=== PATIENT | male | born 1950 ===

== ENCOUNTER 2017-03-19 09:32 | Outpatient (RCR) | payer MEDICARE ==
[2016-12-27 08:38] VITALS: BP 162/88
[2016-12-27] MEDS: DEXAMETHASONE SOD PHOS 10MG/ML IVP PRN (09:45)
[2016-12-27] MEDS: LIDOCAINE/SOD BICARB 8.4% SYR ID PRN (09:45)
[2016-12-27] MEDS: NS(*) 0.9% 500 ML BAG 500 ML IV PRN (09:45)
[2016-12-27] MEDS: PALONOSETRON 0.25 MG/5 ML VIAL IVP PRN (09:45)
--- NOTE | 2016-12-27 10:16 | ONC Progress Note - NP.Halsey ---
Patient History Date of Service Dec 27, 2016 Reason For Visit/HPI Patient is seen in the clinic today for cycle 7 out of 12 of oxaliplatin, 5-FU and leucovorin for his colon cancer. Overall patient is feeling stable. 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 This previously would resolve prior to his next infusion however appears to be lasting longer especially as the weather is getting colder. He continues to use nystatin off and on for oral thrush. He denies any pain in the mouth or need for lidocaine at this time. He is experiencing some taste changes without resolution prior to his next treatment. He denies any neuropathy in his feet. He has had some mild constipation post treatment and is taking a stool softener with resolution. He denies any fever or chills, no nausea or vomiting. Problem List (1) Stage III carcinoma of colon Oncology History Patient was diagnosed with moderately invasive cecal colon adenocarcinoma with surgery on 07/18/2016. Pathology presents high risk features including pericolonic invasion of the tissue microscopically and high indices abutting suggesting numerous testicles that include increased risk for relapse. 0 of 17 lymph nodes were involved. Chemotherapy with FOLFOX 12 cycles given every 2 weeks was started on 10/04/2016. CEA will be monitored with each treatment. CEA drawn on 11/20/2016 was 1.3 Patient will receive cycle 7 today. 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 Alcohol History He occasionally has 2 alcoholic beverages in a week Recreational Drug History He denies use Smoking History: Yes (chewed in 20's) Smoking Status: Never Smoker Exposure to Second Hand Smoke?: No Medications and Allergies Active Scripts Nystatin (Nystatin) 100,000 Unit/Ml Oral.susp, 3 ML PO TID for 30 Days, #300 ML 1 Refill swish and swallow Prov:ROBBY VILLALPANDO SECURITY BUSINESS ANALYST-BC, ONC 12/13/16 Ondansetron (ZOFRAN ODT) 8 Mg Tab.rapdis, 8 MG PO Q8H, #30 TAB Prov:ROBBY VILLALPANDOP-BC, ONC 11/29/16 Prochlorperazine Maleate (Compazine) 10 Mg Tablet, 10 MG PO Q6H, #30 MG 1 Refill Prov:ROBBY VILLALPANDOP-BC, ONC 11/15/16 Dexamethasone 4 Mg Tab (DEXAMETHASONE 4 MG TAB) 4 Mg Tab, 4 MG PO BID for 3 Days , #30 TAB Take 4mg PO once or twice daily for nausea on days 2-4 of each cycle. 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) Physical Exam Vital Signs Temperature: 97.6 Pulse: 100 BP Systolic: 162 BP Diastolic: 88 Respiratory Rate: 16 O2 SAT: 95 O2 Delivery: Height (inches) 72.00 Weight lb: 0 Weight oz: Weight Kg ([place]): [id number] Pain: 0 ECOG Score: 1 General: Stable, Well Developed, Well Nourished, Not In Acute Distress HEENT: No Trauma, No Conjunctivitis, No Icterus, No Mucositis, No Oral Thrush Neck: Supple Lungs: Clear to Auscultation Heart: Regular Rate, Regular Rhythm, No Gallops, No Murmurs Abdomen: Soft and Nontender, No Hepatosplenomegaly, No Masses Extremities: No Cyanosis, No Clubbing Lymphadenopathy: No Cervical Psychiatric: Mood appears normal, Affect appears normal Skin: No Skin Rashes Diagnostic Studies Diagnostic Studies Laboratory Please see chart, labs were within normal limits, absolute neutrophil count was 1900. AST and ALT slightly elevated Assessment and Plan Assessment & Plan Patient is a pleasant gentleman recently diagnosed with stage III colon cancer of the cecum and pericolonic invasion with high indices of budding indicating an increased risk for relapse. Patient has followed with Dr. Maynard regarding treatment options. He had port placed by Dr. Ward and started FOLFOX cycle 1 on 10/04/2016 and will receive cycle 6 today. Treatment will be given every 14 days 12 cycles. Patient is tolerating treatment relatively well with expected side effects of cold sensation causing the neuropathy with cold products post oxaliplatin which resolves prior to next treatment. Patient has experienced oral thrush and is using nystatin swish and swallow as needed with good results. No oral thrush noted today I have hesitated to use any Diflucan due to his elevated liver enzymes. Patient will continue to avoid Tylenol at this time, as his liver enzymes have normalized or are just slightly elevated. CBC and CMP weekly for ongoing monitoring. Patient is doing well having his primary care provider DC his pump. Patient to follow with provider with cycle 8 FOLFOX in 2 weeks. I personally spent a total of 15 minutes. Of that 15 minutes was counseling/ coordination of patient's care. See my note above for details. ROBBY VILLALPANDO SECURITY BUSINESS ANALYST-BC, ONC Dec 27, 2016 10:16
[2017-01-10 09:08] VITALS: BP 146/77
--- NOTE | 2017-01-10 09:25 | ONC Progress Note - NP.Halsey ---
Patient History Date of Service Jan 10, 2017 Reason For Visit/HPI Patient is seen in the clinic today for cycle 8 out of 12 of oxaliplatin, 5-FU and leucovorin for his colon cancer. Patient reports that his appetite has decreased and foods do not taste as good as they used to. He has lost some weight but not significant. He continues to have cold symptoms in his hands and his face after the oxaliplatin. These do resolve prior to his next treatment. He denies significant pain just the tingling and cold sensation. He has not had any further oral thrush and has not used nystatin and over a week. He denies any bowel changes, no fever or chills, mild nausea during the 5-FU treatment but then this resolves. Overall he is tolerating treatment with expected side effects. Problem List (1) Stage III carcinoma of colon Oncology History Patient was diagnosed with moderately invasive cecal colon adenocarcinoma with surgery on 07/18/2016. Pathology presents high risk features including pericolonic invasion of the tissue microscopically and high indices abutting suggesting numerous testicles that include increased risk for relapse. 0 of 17 lymph nodes were involved. Chemotherapy with FOLFOX 12 cycles given every 2 weeks was started on 10/04/2016. CEA will be monitored with each treatment. CEA drawn on 11/20/2016 was 1.3 Patient will receive cycle 8 today. 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 Alcohol History He occasionally has 2 alcoholic beverages in a week Recreational Drug History He denies use Smoking History: Yes (chewed in 20's) Smoking Status: Never Smoker Exposure to Second Hand Smoke?: No Medications and Allergies Active Scripts Nystatin (Nystatin) 100,000 Unit/Ml Oral.susp, 3 ML PO TID for 30 Days, #300 ML 1 Refill swish and swallow Prov:ROBBY VILLALPANDOP-BC, ONC 12/13/16 Ondansetron (ZOFRAN ODT) 8 Mg Tab.rapdis, 8 MG PO Q8H, #30 TAB Prov:ROBBY VILLALPANDO PRECINCT POLICE SERGEANT-BC, ONC 11/29/16 Prochlorperazine Maleate (Compazine) 10 Mg Tablet, 10 MG PO Q6H, #30 MG 1 Refill Prov:ROBBY VILLALPANDO PRECINCT POLICE SERGEANT-BC, ONC 11/15/16 Dexamethasone 4 Mg Tab (DEXAMETHASONE 4 MG TAB) 4 Mg Tab, 4 MG PO BID for 3 Days , #30 TAB Take 4mg PO once or twice daily for nausea on days 2-4 of each cycle. Prov:JEN ALDRICH MD 11/01/16 Hydrocodone Bit/Acetaminophen (HYDROCODON-ACETAMINOPHEN 5-325) 1 Each Tablet, 1 EACH PO Q4-6H Y for PAIN, #20 TAB Prov:FRANCA WARD MD 09/21/16 Allergies: Coded Allergies: No Known Drug Allergies (Unverified , 09/20/16) Review of System/Physical Exam Review of Systems All Systems Reviewed/Normal: Yes, Except as Noted Constitutional: Positive for Appetite/Weight Change HEENT: Other (taste changes) Hematologic: Positive for Fatigue Neurologic: Tingling of Hands (related to cold), Tingling of Feet (feet feel heavy) Skin: Positive for Dry Skin Physical Exam Vital Signs Temperature: 97.7 Pulse: 67 BP Systolic: 146 BP Diastolic: 77 Respiratory Rate: 16 O2 SAT: 97 O2 Delivery: Height (inches) 72.00 Weight lb: 0 Weight oz: Weight Kg ([place]): [id number] Pain: 0 ECOG Score: 1 General: Stable, Well Developed, Well Nourished, Not In Acute Distress HEENT: No Trauma, No Conjunctivitis, No Icterus, No Mucositis, No Oral Thrush Neck: Supple Lungs: Clear to Auscultation Heart: Regular Rate, Regular Rhythm, No Gallops Abdomen: Soft and Nontender, No Hepatosplenomegaly, No Masses Extremities: No Cyanosis, No Clubbing, No Edema Lymphadenopathy: No Cervical Psychiatric: Mood appears normal, Affect appears normal Skin: No Skin Rashes, No Bruising, No Purpura Diagnostic Studies Diagnostic Studies Laboratory CBC on 1113 and shows a white cell count of 4000, hemoglobin of 12.2 hematocrit of 36.1, and platelet count of 110,000. Absolute neutrophil count is 2040. AST is 37, ALT is 41, total bilirubin is 0.9 CEA is 1.8 previously 1.9 and 1.3 Assessment and Plan Assessment & Plan Patient is a pleasant gentleman diagnosed with stage III colon cancer of the cecum and pericolonic invasion with high indices of budding indicating an increased risk for relapse. Patient has followed with Dr. Maynard regarding treatment options. He had port placed by Dr. Ward and started FOLFOX cycle 1 on 10/04/2016 and will receive cycle 8 today. Treatment will be given every 14 days 12 cycles. Patient is tolerating treatment relatively well with expected side effects of cold sensation causing the neuropathy with cold products post oxaliplatin which resolves prior to next treatment. Patient has had taste changes which is caused some mild weight loss. Patient has experienced oral thrush previously but has no evidence of thrush today. He has used nystatin. I have hesitated to use any Diflucan due to his elevated liver enzymes. Patient will continue to avoid Tylenol at this time, as his liver enzymes have normalized or are just slightly elevated. AST and ALT are always elevated one week posttreatment. CBC and CMP weekly for ongoing monitoring. Patient is doing well having his primary care provider DC his pump. Patient to follow with provider with cycle 9 FOLFOX in 2 weeks. I personally spent a total of 15 minutes. Of that 15 minutes was counseling/ coordination of patient's care. See my note above for details. Copies to: JEN ALDRICH MD, NANCY J FNP-BC, ONC Jan 10, 2017 09:25
[2017-01-10] MEDS: DEXAMETHASONE SOD PHOS 10MG/ML IVP PRN (09:32)
[2017-01-10] MEDS: PALONOSETRON 0.25 MG/5 ML VIAL IVP PRN (09:32)
[2017-01-10] MEDS: NS(*) 0.9% 500 ML BAG 500 ML IV PRN (09:34)
[2017-01-10] MEDS: DEXTROSE 5%(*) 100 ML BAG 100 ML IVPB PRN (09:35)
[2017-01-10] MEDS: LIDOCAINE/SOD BICARB 8.4% SYR ID PRN (09:35)
[2017-01-24 08:54] VITALS: BP 163/98
[2017-01-24] MEDS: DEXAMETHASONE SOD PHOS 10MG/ML IVP PRN (09:23)
[2017-01-24] MEDS: PALONOSETRON 0.25 MG/5 ML VIAL IVP PRN (09:23)
[2017-01-24] MEDS: LIDOCAINE/SOD BICARB 8.4% SYR ID PRN (09:23)
[2017-01-24] MEDS: NS(*) 0.9% 500 ML BAG 500 ML IV PRN (09:24)
--- NOTE | 2017-02-02 09:51 | ONCOLOGY FOLLOW UP NOTE ---
EVENT DATE: January 24, 2017 REASON FOR FOLLOWUP High risk stage II colon cancer. INTERIM HISTORY Mr. Starr returns to clinic for a follow-up visit today. He is accompanied by his . He is preparing to receive his ninth of 12 planned FOLFOX chemotherapy cycles in the adjuvant setting. He has been followed by Dr. Baldwin here, as well as QUENTIN Wong. He reports that things have generally been going fairly well, and that his two or three most recent chemotherapy infusions had actually been a bit easier than prior. He reports ongoing cold sensitivity and peripheral neuropathy related to cold. He has had no chronic or persistent peripheral neuropathy that is independent of cold, however. His appetite has been fair, but his taste buds have not been working particularly well. He reports no significant nausea, but he has had some sores in his mouth. He reports no significant changes in his bowel habits. He denies melena and hematochezia. He reports no shortness of breath, chest pain, or cough. He has not yet received a flu shot this year. He does not have a primary care doctor. He and his live in [place], [place]. So far, weather and road conditions have not been limiting for him, in terms of administration of adjuvant chemotherapy. REVIEW OF SYSTEMS Otherwise negative, and all systems are reviewed. CURRENT MEDICATIONS 1. Nystatin p.r.n. 2. Zofran p.r.n. 3. Compazine p.r.n. 4. Dexamethasone per chemotherapy protocol. 5. Hydrocodone/acetaminophen p.r.n. 6. Acetaminophen p.r.n. ALLERGIES No known drug allergies. SOCIAL HISTORY Patient is and has four children. He is a retired trucker hand. He had occasionally consumed alcoholic beverages, but there is no history of illicit drug use. He is a never smoker. VITAL SIGNS Temperature is 97.1, blood pressure 136/89, heart rate is 61, respirations 15, oxygen saturation is 98% on room air. PHYSICAL EXAMINATION GENERAL: Patient is alert and oriented times three, in no apparent distress, sitting in the infusion chair. He is in good spirits, and quite interactive. HEENT: Exam reveals anicteric sclerae. NEUROLOGIC: Exam is grossly nonfocal. SKIN: Exam reveals no concerning rash or lesion. EXTREMITIES: Exam reveals no edema, clubbing or cyanosis. The rest of the physical exam is deferred for discussion today. LABORATORY STUDIES Reviewed per the [facility] record. ASSESSMENT AND PLAN 1. High risk stage II colon cancer. Mr. Starr has completed eight of 12 cycles of adjuvant FOLFOX chemotherapy. He is here to receive his ninth cycle. He has had his pump removed on day three, closer to home in [place]. He is having ongoing and expected toxicity from adjuvant chemotherapy. Cold sensitivity, fatigue, and dyschezia have been the most prominent. He does seem to be tolerating adjuvant chemotherapy remarkably well, and it is very likely that he will be able to finish. We discussed the importance of having him find a primary care provider, as well as some additional concerns about his CEA levels. Initially, as I had not had a chance to review his outside labs, it seemed that his CEA was in the 3-4 range. However, after further review, his CEA has been less than 2. Also, his LFTs have fluctuated somewhat throughout his treatment course, and he has no symptoms to suggest metastatic disease in the liver. As long as there is not a definitive trend of worsening in his LFTs , I think it is certainly fine for him to proceed with adjuvant chemotherapy per protocol. He will have followup at the time of his next cycle with either Dr. Baldwin or QUENTIN Wong. The patient and his had additional questions today, and I believe I answered all of their questions to their satisfaction. I spent a total of 30 minutes of time face to face with the patient today, and 25 minutes of this was spent in direct counseling and coordination of care. DAWNA
[2017-02-07 08:37] VITALS: BP 139/99
[2017-02-07] MEDS: LIDOCAINE/SOD BICARB 8.4% SYR ID PRN ×2 (08:40→09:00)
[2017-02-07] MEDS: DEXTROSE 5%(*) 100 ML BAG 100 ML IVPB PRN (09:00)
[2017-02-07] MEDS: NS(*) 0.9% 500 ML BAG 500 ML IV PRN (09:00)
[2017-02-07] MEDS: PALONOSETRON 0.25 MG/5 ML VIAL IVP PRN (09:03)
[2017-02-07] MEDS: DEXAMETHASONE SOD PHOS 10MG/ML IVP PRN (09:03)
--- NOTE | 2017-02-07 11:36 | ONC Progress Note - NP.Halsey ---
Patient History Date of Service Feb 07, 2017 Reason For Visit/HPI Patient is seen in the clinic today for cycle 10 out of 12 of oxaliplatin, 5-FU and leucovorin for his colon cancer. Patient continues to report that he has neuropathy to cold products and taste changes. He is able to maintain his weight. Occasionally he has episodes of diarrhea but does not take any medication for fear of constipation and shares that this resolves within a day. Patient has no new concerns today. He has requested a prescription for lab draw on February 20 and February 27 to hand carry with him to the [facility]. In addition I did call the [facility] and leave a message. Problem List (1) Stage III carcinoma of colon Oncology History Patient was diagnosed with moderately invasive cecal colon adenocarcinoma with surgery on 07/18/2016. Pathology presents high risk features including pericolonic invasion of the tissue microscopically and high indices abutting suggesting numerous testicles that include increased risk for relapse. 0 of 17 lymph nodes were involved. Chemotherapy with FOLFOX 12 cycles given every 2 weeks was started on 10/04/2016. CEA will be monitored with each treatment. CEA drawn on 11/20/2016 was 1.3 Patient will receive cycle 10 today. 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 Alcohol History He occasionally has 2 alcoholic beverages in a week Recreational Drug History He denies use Smoking History: Yes (chewed in 20's) Smoking Status: Never Smoker Exposure to Second Hand Smoke?: No Medications and Allergies Active Scripts Nystatin (Nystatin) 100,000 Unit/Ml Oral.susp, 3 ML PO TID for 30 Days, #300 ML 1 Refill swish and swallow Prov:ROBBY VILLALPANDO PRINTING SALES REPRESENTATIVE-BC, ONC 12/13/16 Ondansetron (ZOFRAN ODT) 8 Mg Tab.rapdis, 8 MG PO Q8H, #30 TAB Prov:ROBBY VILLALPANDO PRINTING SALES REPRESENTATIVE-BC, ONC 11/29/16 Prochlorperazine Maleate (Compazine) 10 Mg Tablet, 10 MG PO Q6H, #30 MG 1 Refill Prov:ROBBY VILLALPANDO PRINTING SALES REPRESENTATIVE-BC, ONC 11/15/16 Dexamethasone 4 Mg Tab (DEXAMETHASONE 4 MG TAB) 4 Mg Tab, 4 MG PO BID for 3 Days , #30 TAB Take 4mg PO once or twice daily for nausea on days 2-4 of each cycle. Prov:JEN ALDRICH MD 11/01/16 Hydrocodone Bit/Acetaminophen (HYDROCODON-ACETAMINOPHEN 5-325) 1 Each Tablet, 1 EACH PO Q4-6H Y for PAIN, #20 TAB Prov:FRANCA WARD MD 09/21/16 Allergies: Coded Allergies: No Known Drug Allergies (Unverified , 09/20/16) Review of System/Physical Exam Review of Systems All Systems Reviewed/Normal: Yes, Except as Noted Gastrointestinal: Diarrhea Hematologic: Positive for Fatigue Neurologic: Other (cold neuropathy in his hands) Skin: Positive for Dry Skin Physical Exam Vital Signs Temperature: 97.8 Pulse: 81 BP Systolic: 139 BP Diastolic: 99 Respiratory Rate: 16 O2 SAT: 95 O2 Delivery: Height (inches) 72.00 Weight lb: 0 Weight oz: Weight Kg ([place]): [id number] Pain: 0 ECOG Score: 1 General: Stable, Well Developed, Well Nourished, Not In Acute Distress HEENT: No Trauma Lungs: Clear to Auscultation Heart: Regular Rate, Regular Rhythm, No Gallops Abdomen: Soft and Nontender, No Hepatosplenomegaly, No Masses, Other (Zach sounds are normoactive) Extremities: No Cyanosis, No Clubbing, No Edema Psychiatric: Mood appears normal, Affect appears normal Skin: No Skin Rashes, No Bruising, No Purpura Diagnostic Studies Diagnostic Studies Laboratory Labs were reviewed today, please see handout in his paper chart. Assessment and Plan Assessment & Plan Patient is a pleasant gentleman diagnosed with stage III colon cancer of the cecum and pericolonic invasion with high indices of budding indicating an increased risk for relapse. Patient has followed with Dr. Cantu regarding treatment options. He had port placed by Dr. Ward and started FOLFOX cycle 1 on 10/04/2016 and will receive cycle 8 today. Treatment will be given every 14 days 12 cycles. Patient is tolerating treatment relatively well with expected side effects of cold sensation causing the neuropathy with cold products post oxaliplatin which resolves prior to next treatment. Patient has had taste changes which is caused some mild weight loss however patient feels that it has stabilized recently. Patient has experienced oral thrush previously but has no evidence of thrush today. He has not used nystatin. Patient will continue to avoid Tylenol at this time, as his liver enzymes have normalized or are just slightly elevated. AST and ALT are always elevated one week posttreatment. CBC and CMP weekly for ongoing monitoring. Patient is doing well having his primary care provider DC his pump. Patient to follow with provider with cycle 11 FOLFOX in 2 weeks. He should follow with Dr. Cantu prior to completion of treatment. He is questioning when he can have his port removed. I personally spent a total of 15 minutes. Of that 15 minutes was counseling/ coordination of patient's care. See my note above for details. ROBBY VILLALPANDO PRINTING SALES REPRESENTATIVE-BC, ONC Feb 07, 2017 11:36
[2017-02-07 12:38] VITALS: BP 144/94
[2017-02-21] MEDS: DEXTROSE 5%(*) 100 ML BAG 100 ML IVPB PRN (08:30)
[2017-02-21] MEDS: NS(*) 0.9% 500 ML BAG 500 ML IV PRN (08:30)
[2017-02-21] MEDS: LIDOCAINE/SOD BICARB 8.4% SYR ID PRN (08:30)
[2017-02-21] MEDS: PALONOSETRON 0.25 MG/5 ML VIAL IVP PRN (09:16)
[2017-02-21] MEDS: DEXAMETHASONE SOD PHOS 10MG/ML IVP PRN (09:17)
[2017-02-21 09:19] VITALS: BP 124/80
--- NOTE | 2017-02-21 10:31 | ONC Progress Note - NP.Halsey ---
Patient History Date of Service Feb 21, 2017 Reason For Visit/HPI Patient is seen in the clinic today for cycle 11 out of 12 of oxaliplatin, 5-FU and leucovorin for his colon cancer. He will have labs drawn on Feb.27 in [place] post this cycle today. Overall he is feeling weak and fatigued but continues to do daily chores, it just takes him longer. He feels that his taste has improved. 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 He is anxious to be completed. Problem List (1) Stage III carcinoma of colon Oncology History Patient was diagnosed with moderately invasive cecal colon adenocarcinoma with surgery on 07/18/2016. Pathology presents high risk features including pericolonic invasion of the tissue microscopically and high indices abutting suggesting numerous testicles that include increased risk for relapse. 0 of 17 lymph nodes were involved. Chemotherapy with FOLFOX 12 cycles given every 2 weeks was started on 10/04/2016. CEA will be monitored with each treatment. CEA drawn on 11/20/2016 was 1.3 Patient will receive cycle 10 today. 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 Alcohol History He occasionally has 2 alcoholic beverages in a week Recreational Drug History He denies use Smoking History: Yes (chewed in 20's) Smoking Status: Never Smoker Exposure to Second Hand Smoke?: No Medications and Allergies Active Scripts Nystatin (Nystatin) 100,000 Unit/Ml Oral.susp, 3 ML PO TID for 30 Days, #300 ML 1 Refill swish and swallow Prov:ROBBY VILLALPANDOP-BC, ONC 12/13/16 Ondansetron (ZOFRAN ODT) 8 Mg Tab.rapdis, 8 MG PO Q8H, #30 TAB Prov:ROBBY VILLALPANDOP-BC, ONC 11/29/16 Prochlorperazine Maleate (Compazine) 10 Mg Tablet, 10 MG PO Q6H, #30 MG 1 Refill Prov:ROBBY VILLALPANDOP-BC, ONC 11/15/16 Dexamethasone 4 Mg Tab (DEXAMETHASONE 4 MG TAB) 4 Mg Tab, 4 MG PO BID for 3 Days , #30 TAB Take 4mg PO once or twice daily for nausea on days 2-4 of each cycle. Prov:JEN ALDRICH MD 11/01/16 Hydrocodone Bit/Acetaminophen (HYDROCODON-ACETAMINOPHEN 5-325) 1 Each Tablet, 1 EACH PO Q4-6H Y for PAIN, #20 TAB Prov:FRANCA WARD MD 09/21/16 Allergies: Coded Allergies: No Known Drug Allergies (Unverified , 09/20/16) Review of System/Physical Exam Review of Systems All Systems Reviewed/Normal: Yes, Except as Noted Hematologic: Positive for Fatigue Neurologic: Other (neuropathy when exposed to cold products. ) Physical Exam Vital Signs Temperature: 97.8 Pulse: 70 BP Systolic: 124 BP Diastolic: 80 Respiratory Rate: 16 O2 SAT: 95 O2 Delivery: Height (inches) 72.00 Weight lb: 0 Weight oz: Weight Kg ([place]): [id number] Pain: 0 ECOG Score: 0 General: Stable, Well Developed, Well Nourished, Not In Acute Distress HEENT: No Trauma, No Conjunctivitis, No Icterus Neck: Supple Lungs: Clear to Auscultation Heart: Regular Rate, Regular Rhythm, No Gallops Abdomen: Soft and Nontender, No Hepatosplenomegaly, No Masses, Other (bowel sounds active) Extremities: No Cyanosis Psychiatric: Mood appears normal, Affect appears normal Skin: No Skin Rashes, No Bruising, No Purpura Diagnostic Studies Diagnostic Studies Laboratory CBC drawn on 02/20/2017 shows a white cell count of 2900, hemoglobin 11.2, hematocrit of 32.4 with platelet count of 103,000. Absolute neutrophil count is 1400. Chemistry is remarkable for a protein is 6.3 and a calcium of 8.4. Tumor markers were not resulted. Assessment and Plan Assessment & Plan Patient is a pleasant gentleman diagnosed with stage III colon cancer of the cecum and pericolonic invasion with high indices of budding indicating an increased risk for relapse. Patient has followed with Dr. Cantu regarding treatment options. He had port placed by Dr. Ward and started FOLFOX cycle 1 on 10/04/2016 and will receive cycle 11 today. Treatment has been given every 14 days 12 cycles. Patient is tolerating treatment relatively well with expected side effects of cold sensation causing the neuropathy with cold products post oxaliplatin which resolves prior to next treatment. Patient has had taste changes which is caused some mild weight loss however patient feels that it has stabilized and improved recently. Labs reviewed today are essentially unremarkable. Patient's platelet level is 103,000, ANC is 1400. Patient is doing well having his primary care provider DC his pump. Patient to follow with provider with cycle 11 FOLFOX in 2 weeks. He should follow with Dr. Cantu prior to completion of treatment. He is questioning when he can have his port removed. I personally spent a total of 15 minutes. Of that 15 minutes was counseling/ coordination of patient's care. See my note above for details. ROBBY VILLALPANDO ELECTRIC SIGN ASSEMBLER-BC, ONC Feb 21, 2017 10:31
[2017-02-21 14:51] VITALS: BP 124/80
--- NOTE | 2017-02-28 14:29 | Oncology Note ---
Patient called the clinic and would like to have labs drawn at the [facility] on March 05 and will complete chemotherapy on March 06 in [place] due to services scheduled for March 07 of a dear friend that he would like to attend. Patient then will follow with Dr. Maynard on March 19 to review follow-up schedule. Labs were faxed to the [facility] at [phone]. ROBBY VILLALPANDO SPOT WELDER-BC, ONC Feb 28, 2017 14:29
--- NOTE | 2017-03-05 16:35 | SS Care Plan-COLON ---
Introduction Your cancer care does not end with active treatment. Now that you have finished your cancer treatment, you will continue to be monitored and any lingering side effects will be managed. This Survivorship Care Plan was designed to help you prepare for life after cancer treatment. It will include important contact information, diagnosis information, treatment summary, doses of chemotherapy and/or radiation therapy, and recommendations for follow-up care. Follow- up care and keeping a medical support system in place are essential for maintaining both your physical and emotional health. Please contact us with any future questions or concerns. Care Plan for Colon Cancer Prepared by: KITTY Vega, OCGarcia Care Team Care Team Mixer Whipped Topping/Oncologist Nilo Cantu MD Nurse/Nurse Practitioner KITTY Wong, AMEE [facility]/[employer] [place] Background Info Surgery completed on 07-18-[address] Jayme Lemus. Colonoscopy completed demonstrated a mass in the cecum/ascending colon with biopsies confirming adenocarcinoma. CEA level was normal. He had mild anemia. CT scan did not show any definite evidence of metastatic disease but demonstrated a ileocecal mass. Cancer Detection: Screening, Symptoms (Presented to the emergency room in [place] with right lower quadrant pain. ) Site in Colon: Right (Right sided hemicolectomy for moderately invasive cecal colon adenocarcinoma with surgery on july 18, 2016) Predisposing Conditions: None Family History: None (Family history of mother and grandfather with lung cancer) Genetic Testing: Not Applicable Other Lesions: None Primary Colon Operation: Right Hemicolectomy Lymph Nodes Lymph Nodes: There were some high risk features including pericolonic invasion of the tissues microscopically. There were high indices of budding suggesting numerous tentacles that would increase risk for relapse. Zero of 17 lymph nodes were involved. Notable Pathological Findings Invasive moderately differentiated adenocarcinoma arising from a conventional adenoma with high grade dysplasia and villiform architecture completed on . pT3 pN0 Notable Surgical Findings Notable Surgical Findings: Recovery from surgery with abdominal discomfort and very mild distention with quick resolution. Ostomy: No Other Health Concerns ~ Other Health Concerns: PAST MEDICAL HISTORY 1. Pericarditis in 1975. 2. Stage III colon cancer status post right-sided hemicolectomy. Treatment Plan & Summary Treatment Plan & Summary Patient's Height 182.9 cm Pre-treatment Post-Treatment Patient's Weight 90.2kg 85.2 kg Patient's BSA 2.13m2 ECOG Performance Status 90% 80%-90% Nutritional Status unremarkable unremarkable Comments Good toleration with expected side effects Regimen FolFox x 12 cycles given every 14 days Premedications included dexamethasone 10mg IV and Aloxi 0.25mg IV. Pre-Oxaliplatin included calcium gluconate 1g with magnesium sulfate 1g IV Post-Oxaliplatin included calcium gluconate 1g with magnesium sulfate 1g IV Therapeutic Agents Therapeutic Agents # Cycles % Dose Reduction DATES Oxaliplatin 85mg/m2 12 treatments in 6 cycles none 10-04-16 to 03-06-17 Leucovorin 400g /m2 12 treatments in 6 cycles none 10-04-16 to 03-06-17 5-Fluorouracil 400mg/m2 IV push 12 treatments in 6 cycles none 10-04-16 to 03-06 5-Fluorouracil 2400mg/m2 IV continous infusion over 46 hours 12 treatments in 6 cycles none 10-04-16 to 03-06-17 Treatment Tolerance Good toleration. Elevated AST/ALT experienced several treatments. Neuropathy to cold developed as expected. Increased fatigue. Chemotherapy Treatment Dates 10-04-16 to 03-06-17 given every two weeks Possible Side Effects of Regimen Neuropathy, low blood count, fatigue, diarrhea , dehydration, nausea and vomiting Serious Toxicities During Treatment Anemia, Mucositis, Neuropathy, neutropenia, fatigue, Hospitalization for Toxicities none Reason For Stopping Chemotherapy Completed therapy Growth Factor Given none Disease Status at end of Treatment No evidence of disease CEA 1.9 or lower throughout treatment Neuropathy at end of treatment Grade 3 to Grade 2 Follow-Up Care FOLLOW-UP CARE UPON SCREENING THE PATIENT HAS BEEN DETERMINED TO HAVE THE FOLLOWING ISSUE(S): 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 Chief Concern Needs/Concerns Chief Patient Concerns: Neuropathy Bone Health/Osteoporosis risk Survivors who received chemotherapy, steroid medications, or hormonal therapy may develop thin or weak bones called osteoporosis. Anyone can lower their risk of osteoporosis by avoiding tobacco products, eating foods rich in calcium and vitamin D and doing regular exercise. Recommendations are: Bone densitometry every 1 to 2 years after initiation of aromatase inhibitor (if applicable) and/or at age 65 or older or for patients who experienced chemotherapy-induced early menopause Calcium (1200-1500mg) through diet or supplementation and Vitamin D- 2000 IU daily or as directed Weight-bearing exercise- daily 20-60 minutes Avoidance of smoking if appropriate Bisphosphonate, if indicated per bone densitometry Psychological, Emotional, Relational, and Spiritual Aspects of Survivorship Having cancer often changes the way you relate to family, partner or friends and the way they relate to you. When active treatment is over, some survivors need different types of support than they had before. Some friends may become closer, while others may distance themselves. Families can become overprotective or may have exhausted their ability to be supportive. Relationship problems that may have been ignored before a cancer diagnosis can be brought to the surface. Everyone is changed by the cancer experience in ways they may not be aware of. It is often helpful to: Talk with other cancer survivors by attending a support group Attend individual counseling or family counseling Screening for other cancers If 50 years or older: Colonoscopy every 10 years if first is normal If male and 50 years or older; PSA screening If male and family history of prostate cancer, PSA to begin at age 40 Fatigue Fatigue is a persistent feeling of physical, emotional, or mental tiredness or exhaustion. It is the most common side effect of cancer treatment, and some cancer survivors experience fatigue for months after finishing treatment. Fatigue can seriously affect all aspects of a persons life, from relationships with friends and family to the ability to perform at work. It is important to discuss fatigue with your provider because fatigue can be managed. Regular physical activity (e.g., walking 20 minutes daily) Evaluation for hypothyroidism, anemia, depression Physical therapy evaluation Wellness Being diagnosed with a serious illness is very stressful. Learning how to manage stress is extremely important for recovery and gook health in the future. Experiencing high levels of stress for a long time has been linked to health problems and lower quality of life. A big step in reducing stress can be made through small daily changes. Some ways to manage stress is through: Maintenance of body weight as weight gain is associated with recurrence Regular physical activity (e.g., walking 20-60 minutes daily) appears to be associated with a lower risk for recurrence and improved survival following many treatments and lowers stress levels Avoidance of smoking and exposure to second hand smoke Limitation of alcohol intake to <1drink, 2-3x per week Eating a diet high in fruits, vegetables, and whole grains and low in red and processed meat appears to protect against cancer progression, risk of recurrence, and overall mortality for a variety of cancers Obtaining the nutrients needed from foods instead of supplements or vitamins is best. Preliminary evidence has shown that supplements may do more harm than good Screening as recommended Relaxation, support groups, acupuncture, yoga, massage and counseling have been found to be effective in learning to decrease stress Annual Influenza vaccination Pneumococcal vaccination with revaccination as appropriate- usually at age 65 Shingles vaccination as appropriate- usually at age 60 Concerns about risk of recurrence A recurrence is when the cancer comes back after treatment. Cancer recurs because small areas of cancer cells may remain undetected in the body. Over time, these cells may increase in number until they show up on test results or cause signs or symptoms. Depending on the type of cancer, this can happen weeks , months, or even many years after the original cancer was treated. A recurrence may be local, which means the cancer has come back in the same part of the body where the original cancer was located; regional, which means it has returned in an area near the original location; or distant, which means it has returned in another part of the body. It is important to know that if a cancer recurs far from the location of the original cancer, it is still named for the part of the body where the original cancer began. For example, if a woman treated for breast cancer develops cancer in her liver, doctors will say she has metastatic breast cancer (breast cancer that has spread to another part of the body), not liver cancer. To help find signs of a potential recurrence, your provider will ask specific questions about your health and usually do a careful examination during your follow-up visits. You may also have blood tests or imagining tests. Referral for counseling or support group often helps with emotional concerns Memory problems and/or confusion Chemotherapy has been associated with causing cognitive deficits such as problems with thinking, learning and memory. If you have cognitive deficits, you may be forgetful or have difficulty concentrating. Research has demonstrated that chemotherapy may cause such deficits. Some survivors may experience long-term cognitive deficits and some may have improvement after completing treatment. Other factors that may contribute to memory and concentration problems include aging, depression, menopause, low blood counts, medications and mental and emotional stress with coping with cancer and after cancer. There are no proven treatments other than: Obtaining good sleep habits Exercise the mind with memory games Use notes as reminders- carry a notebook and write down important information Exercise daily Manage stress Peripheral neuropathy Peripheral neuropathy is a type of nerve damage that develops when the nerves that carry information back and forth between the brain and spinal cord are damaged. This damage can be caused by some types of chemotherapy, radiation therapy or by the cancer itself. Depending on which nerves are affected, a person can develop numbness, tingling, pain, muscle weakness, constipation, or dizziness. Many people recover fully within a few months or a few years. Sometimes the condition may be more difficult to cure and may require long-term management. Treatment options include: Use of Vitamin B6 100mg twice daily may help Lutein may be used Gabapentin, Lyrica may be prescribed Over the counter cream medications such as capsaicin cream or menthol creams may help Massage- by increasing blood flow, massage may provide pain relief Physical therapy- through range of motion and stretching exercises, physical therapy may strengthen muscles that are weak and improve other symptoms of peripheral neuropathy Transcutaneous nerve stimulation (TNS)- electrical impulses attached to your skin may provide relief and promote nerve regeneration Surveillance SURVEILLANCE Year 1 Year 2 Year 3 Yrs 4 & 5 Medical Hx/Physical Exam Every 3 months Every 3-6 months Every 6 months Every 6 months CEA Test Every 3 Months Every 3-6 months Every 6 months Every [address] Scan (chest & abdomen) Every 6-12 months Every 6-12 months Every 6-12 months Every 6-12 months Colonoscopy In one year As indicated As indicated Should repeat Counseling visits Every 3 months Every 3-6 months Every 6 months Every 6 months Preventive Care Recommendations: All preventive measures per PCP, Bone Health, Colon cancer screening, Cholesterol monitoring/management, Diet, Exercise, Mental Health, Weight management Comments on Follow-up Care: May consider a low dose aspirin daily for disease prevention. Monitor for neuropathy. End Note END NOTE 1: Important caution. This is a summary document whose purpose is to review the highlights of the cancer chemotherapy treatment plan for this patient. This does not replace information available in the medical record, a complete medical history provided by the patient, examination and diagnostic information, or educational materials that describe strategies for coping with cancer and adjuvant chemotherapy in detail. Both medical science and an individual's health care needs change, and therefore this document is current only as of the date of preparation. This summary document does not prescribe or recommend any particular medical treatment or care for cancer or any other disease and does not substitute for the independent medical judgment of the treating professional. ROBBY VILLALPANDO FANCY WIRE DRAWER-BC, ONC Mar 05, 2017 16:35
[2017-03-06] MEDS: LIDOCAINE/SOD BICARB 8.4% SYR ID PRN (08:28)
[2017-03-06 08:33] VITALS: BP 123/73
[2017-03-06] MEDS: NS(*) 0.9% 500 ML BAG 500 ML IV PRN (08:33)
[2017-03-06] MEDS: PALONOSETRON 0.25 MG/5 ML VIAL IVP PRN (08:50)
[2017-03-06] MEDS: DEXAMETHASONE SOD PHOS 10MG/ML IVP PRN (08:50)
[2017-03-06] MEDS: DEXTROSE 5%(*) 100 ML BAG 100 ML IVPB PRN (09:30)
--- NOTE | 2017-03-06 10:17 | ONC Progress Note - NP.Halsey ---
Patient History Date of Service Mar 06, 2017 Reason For Visit/HPI Patient is seen in the clinic today for cycle 12 out of 12 of oxaliplatin, 5-FU and leucovorin for his colon cancer. Overall patient is feeling well. He has continued fatigue and neuropathy with numbness in the fingers and feet and cold sensation to the hands feet and mouth. He had increased difficulty with fine motor activities and has seen PT and has exercises that he is doing. Over the last few cycles he has developed a dizziness and is more careful with movement from one position to another. He has exercises for his dizziness as well. Survivorship information was reviewed with him today and a handout given which included doses of chemotherapy, dates of treatment, side effects experienced and management of those side effects in the future. His follow up recommended schedule is reviewed with screening recommendations. He is happy to complete treatment today and would like to have his PORT removed. Problem List (1) Stage III carcinoma of colon Oncology History Patient was diagnosed with moderately invasive cecal colon adenocarcinoma with surgery on 07/18/2016. Pathology presents high risk features including pericolonic invasion of the tissue microscopically and high indices abutting suggesting numerous testicles that include increased risk for relapse. 0 of 17 lymph nodes were involved. Chemotherapy with FOLFOX 12 cycles given every 2 weeks was started on 10/04/2016. CEA will be monitored with each treatment. CEA drawn on 11/20/2016 was 1.3 Patient will receive cycle 10 today. 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 Alcohol History He occasionally has 2 alcoholic beverages in a week Recreational Drug History He denies use Smoking History: Yes (chewed in 20's) Smoking Status: Never Smoker Exposure to Second Hand Smoke?: No Medications and Allergies Active Scripts Nystatin (Nystatin) 100,000 Unit/Ml Oral.susp, 3 ML PO TID for 30 Days, #300 ML 1 Refill swish and swallow Prov:ROBBY VILLALPANDO SCRAP CARRIER-BC, ONC 12/13/16 Ondansetron (ZOFRAN ODT) 8 Mg Tab.rapdis, 8 MG PO Q8H, #30 TAB Prov:ROBBY VILLALPANDO SCRAP CARRIER-BC, ONC 11/29/16 Prochlorperazine Maleate (Compazine) 10 Mg Tablet, 10 MG PO Q6H, #30 MG 1 Refill Prov:ROBBY VILLALPANDO Johnson SCRAP CARRIER-BC, ONC 11/15/16 Dexamethasone 4 Mg Tab (DEXAMETHASONE 4 MG TAB) 4 Mg Tab, 4 MG PO BID for 3 Days , #30 TAB Take 4mg PO once or twice daily for nausea on days 2-4 of each cycle. Prov:JEN ALDRICH MD 11/01/16 Hydrocodone Bit/Acetaminophen (HYDROCODON-ACETAMINOPHEN 5-325) 1 Each Tablet, 1 EACH PO Q4-6H Y for PAIN, #20 TAB Prov:FRANCA WARD MD 09/21/16 Allergies: Coded Allergies: No Known Drug Allergies (Unverified , 09/20/16) Review of System/Physical Exam Review of Systems All Systems Reviewed/Normal: Yes, Except as Noted Hematologic: Positive for Fatigue, Positive for Weakness Neurologic: Numbness of Hands, Numbness of Feet Physical Exam Vital Signs Temperature: 97.5 Pulse: 82 BP Systolic: 123 BP Diastolic: 73 Respiratory Rate: 16 O2 SAT: 94 O2 Delivery: Height (inches) 72.00 Weight lb: 0 Weight oz: Weight Kg ([place]): [id number] Pain: 0 ECOG Score: 1 General: Stable, Well Developed, Well Nourished, Not In Acute Distress HEENT: No Trauma, No Conjunctivitis, No Icterus, No Mucositis Neck: Supple Lungs: Clear to Auscultation Heart: Regular Rate, Regular Rhythm, No Gallops, No Murmurs Abdomen: Soft and Nontender, No Hepatosplenomegaly, No Masses Extremities: No Cyanosis, No Clubbing, No Edema Lymphadenopathy: No Cervical Psychiatric: Mood appears normal, Affect appears normal Skin: No Skin Rashes, No Bruising, No Purpura Diagnostic Studies Diagnostic Studies Laboratory labs reviewed today from outside source. See SPU chart Assessment and Plan Assessment & Plan Patient is a pleasant gentleman diagnosed with stage III colon cancer of the cecum and pericolonic invasion with high indices of budding indicating an increased risk for relapse. Patient has followed with Dr. Aldrich regarding treatment options. He had port placed by Dr. Ward and started FOLFOX cycle 1 on 10/04/2016 and will receive cycle 12, final treatment today. Treatment has been given every 14 days 12 cycles. Patient is tolerating treatment relatively well with expected side effects of cold sensation causing the neuropathy with cold products post oxaliplatin which resolves prior to next treatment. He had developed numbness in the fingers and toes. He has some difficulty with fine motor skills. He has dizziness over the last month which requires him to be more careful with movements. He has no nausea. Patient has had taste changes which is caused some mild weight loss however patient feels that it has stabilized and improved recently. Labs reviewed today are essentially unremarkable. Patient is doing well having his primary care provider DC his pump. He will follow with primary regarding survivorship recommendations reviewed today and given to him in written form. Patient to follow with Dr. Aldrich on March 19. He is questioning when he can have his port removed. Patient will need a CT scan scheduled with the NCCN recommendation of every 6 months for the first year. He will be followed with a CEA every 3 months and will need a colonoscopy. The current recommendation is withing one year, but does not explain if it is from diagnosis or completion of treatment. I personally spent a total of 30minutes. Of that 25 minutes was counseling/ coordination of patient's care. See my note above for details. Copies to: JEN ALDRICH MD, NANCY J SCRAP CARRIER-BC, ONC Mar 06, 2017 10:17
[2017-03-06 13:20] VITALS: BP 135/85
[~2017-03-19] VITALS: Ht 182.9 cm; Wt 80.9 kg
[~2017-03-19 09:32] MED LIST: ALTEPLASE RECOMB 2 MG VIAL IVP PRN; DEX4 PO; FLUOROURACIL 50 MG/ML SDV IV ONE; FLUOROURACIL 50 MG/ML SDV IVP ONE; FLUOROURACIL IV ONE; HEPARIN FLSH (PORT) 500 UN/5ML IVP PRN; LEUCOVORIN CAL IV ONE; LEUCOVORIN CALCIUM IV ONE; LEUCOVORIN IV ONE; LOR5/325 PO; LORA-1455 PO; NS 0.9% IV ONE; NS(*) 0.9% 100 ML BAG 100 ML IVPB PRN; NYST100016 PO; ONDA8TAB94 PO; OXALIPLATIN 100 MG/20 ML VIAL 180 MG in D5W(*) 250 ML BAG 250 ML IVPB ONE; PROC10TA4 PO; PROC5TAB2 PO; WATER STERILE 10 ML VIAL IVP PRN; [UNRECOGNIZED DRUG - OTHER] IV ONE; [UNRECOGNIZED DRUG - OTHER] IV ONE
[2017-03-19 09:49] VITALS: BP 108/78
[2017-03-19 10:01] LABS: PLATELET COUNT, AUTOMATED 132 K/uL (150-450)
--- NOTE | 2017-03-20 19:44 | ONCOLOGY FOLLOW UP NOTE ---
EVENT DATE: March 19, 2017 CHIEF COMPLAINT/REASON FOR VISIT Mr. Starr is a very pleasant 67-year-old gentleman with high risk colorectal cancer stage II, here for followup. HISTORY OF PRESENT ILLNESS Mr. Strar returns. He just finished adjuvant FOLFOX for his high risk stage II colon cancer in early February 2017. He had a T4 lesion with invasion into the pericolonic tissues with a high index of budding. We discussed the pros and cons of adjuvant therapy and he elected to pursue FOLFOX. He has some minimal sensory neuropathy and cold sensitivity, but it is tolerable. GI side effects have resolved with management. He has had progressive fatigue, as expected during his treatment. Overall no new issues and we are here to discuss survivorship now that he has completed therapy. PAST MEDICAL HISTORY 1. Pericarditis in 1975. 2. Stage II colon cancer status post hemicolectomy on the right with high risk features including invasion in the pericolonic tissue with a high index of budding. Treatment with adjuvant FOLFOX for six months due to the high risk stage II status. FAMILY HISTORY Mother and grandfather with lung cancer. SOCIAL HISTORY Patient is with four children. Has presented with his . Approximately two alcoholic beverages (whiskey) per week. Never smoker. Patient is retired. REVIEW OF SYSTEMS CONSTITUTIONAL: No fevers, chills, weight change. Positive progressive fatigue , but tolerable. HEENT: No headache or vision changes. CARDIOVASCULAR: No chest pain, dyspnea on exertion or edema. RESPIRATORY: No shortness of breath, wheeze, cough. GASTROINTESTINAL: Initial nausea and vomiting with chemotherapy, but we adjusted his treatment and this resolved. GENITOURINARY: No dysuria or hematuria. MUSCULOSKELETAL: No weakness or joint pain. PSYCHIATRIC: No anxiety or depression. ENDOCRINE: No heat or cold intolerance. NEUROLOGIC: Positive cold sensitivity and numbness at the fingertips and toes with the oxaliplatin. Improves between each cycle. SKIN: No concerning rashes or bruising. LYMPHATIC: No concerning lumps or bumps. The remainder of the 14-point review of systems is otherwise negative. PHYSICAL EXAMINATION VITAL SIGNS: Blood pressure 108/78, pulse 77, respiratory rate 14, temperature 97.4 Fahrenheit, oxygen saturation 96% on room air. Weight 80.9 kg. Pain 0/10 , fatigue 8/10. The patient did lose considerable weight during his therapy and we are working with Physical Therapy in survivorship. GENERAL: In stable condition, resting comfortably in the chair. HEENT: Normocephalic, atraumatic. CARDIOVASCULAR: Regular rate and rhythm. LUNGS: Clear. ABDOMEN: Soft, nontender. MUSCULOSKELETAL: Patient has lost some muscle mass with this therapy. EXTREMITIES: No clubbing, cyanosis or edema. SKIN: No concerning rashes. Remainder of physical exam otherwise unremarkable. IMPRESSION AND PLAN Mr. Starr is a very pleasant gentleman with high risk stage II colon cancer. He has now finished FOLFOX adjuvant therapy. We begin survivorship now. We would like to get repeat imaging and labs including a CEA in three months. He should check his PSA annually and has a history of a slight elevation of the PSA at 2.2. We discussed survivorship in detail today, answering all of their many questions today. Billing: Return visit level 4. Total time 30 minutes, counseling time 20. MTDD
== END 2017-03-22 13:55 | disposition home or self-care (01) ==
LOC: SPU 09:32
PROVIDERS: ATTEND Internal Medicine
DX: Z51.11 Encounter for antineoplastic chemotherapy (principal); C18.0 Malignant neoplasm of cecum; Z79.899 Other long term (current) drug therapy; G62.9 Polyneuropathy, unspecified; Z87.891 Personal history of nicotine dependence; R53.83 Other fatigue; K59.00 Constipation, unspecified; R53.1 Weakness
CPT/HCPCS: 36415; 85025; 96366; 96367; 96368; 96375; 96411; 96413; 96415; 96416; G0463; J0640; J1100; J1642; J2469; J7040; J7060; J9190; J9263; 82040; 82247; 82310; 82374; 82435; 82565; 82947; 84075; 84132; 84155; 84295; 84450; 84460; 84520; 99212

== ENCOUNTER 2017-03-19 10:00 | Outpatient (RCR) | payer MEDICARE ==
--- NOTE | 2017-01-24 17:51 | PT PLAN OF CARE ---
Physician: QUENTIN Wong Patient is being seen: 1x/MO Therapist: Estefany Hill, PT, DPT, CLT Medical Diagnosis: Colon Cancer Treatment Diagnosis: Colon Cancer Date of Onset: 09/20/16 Date of Initial Evaluation: 09/20/16 Date patient was last seen: 01/24/17 Number of treatments: 5 Number of cancellations/No shows: 0 INTERVENTIONS: Manual Therapy/STM/MET Strengthening/condition Ice/Heat Range of Motion Spinal Stabilization Ultrasound Stretching Iontophoresis Neuromuscular Re-ed Closed Chain Program Electrical Stim Posture/Body mechanics Gait Trg/Balance Trg Biofeedback Home Exercise Program Mech./Manual Traction Therapeutic Activities Pelvic Floor GOALS: In 3 months pt will maintain FACT-G score of greater than 105/108 indicating status of functional, social, physical and emotional well-being. MET In 6 months pt will maintain FACT-G score of greater than 105/108 indicating status of functional, social, physical and emotional well-being. In 6 months pt will maintain functional strength of > 4+/5 in all major muscle groups indicating maintenance of functional strength for performance of ADL's. In Progress PATIENT'S GOAL: Maintain function throughout course of oncology treatment into survivorship. Status of Patient's Goals: In Progress Patient Compliance: Excellent Prognosis: Good Reasons for continuing therapy: Pt shows increased neuropathy as well as increased fatigue with decreased activity. Pt has mild swelling in the distal digits and hand B secondary to neuropathy resulting in minimally decreased joint mobility. Pt and educated on maintaining activity level to reduce side-effects and improve fatigue. Otherwise, pt is progressing well with treatment without many changes on well-being. Posture: Unremarkable Sensation: Pt reports moderate neuropathy in fingers and toes ROM: WFL Strength: LE MMT: All 5/5 excluding R hip ext at 4+/5. Special Tests: FACT-G Score: PWB 24/ (Initial ), SWB 26/ (Initial ), EWB /, FWB (Initial ), Total: 96/108 (Initial 108/108) If you have any questions or concerns, please feel free to contact me at [phone]. Thank you, Estefany Hill, PT, DPT, CLT [facility]
--- NOTE | 2017-03-06 15:07 | PT PLAN OF CARE ---
Physician: QUENTIN Wong Patient is being seen: 2x/MO Therapist: Estefany Hill, PT, DPT, CLT Medical Diagnosis: Colon Cancer Treatment Diagnosis: Colon Cancer Date of Onset: 09/20/16 Date of Initial Evaluation: 09/20/16 Date patient was last seen: 03/06/17 Number of treatments: 6 Number of cancellations/No shows: 0 INTERVENTIONS: Manual Therapy/STM/MET Strengthening/condition Ice/Heat Range of Motion Spinal Stabilization Ultrasound Stretching Iontophoresis Neuromuscular Re-ed Closed Chain Program Electrical Stim Posture/Body mechanics Gait Trg/Balance Trg Biofeedback Home Exercise Program Mech./Manual Traction Therapeutic Activities Pelvic Floor GOALS: In 3 months pt will maintain FACT-G score of greater than 105/108 indicating status of functional, social, physical and emotional well-being. MET In 6 months pt will maintain FACT-G score of greater than 105/108 indicating status of functional, social, physical and emotional well-being. In Progress In 6 months pt will maintain functional strength of > 4+/5 in all major muscle groups indicating maintenance of functional strength for performance of ADL's. MET PATIENT'S GOAL: Maintain function throughout course of oncology treatment into survivorship. Status of Patient's Goals: 2/3 MET Patient Compliance: Good Prognosis: Good Reasons for continuing therapy: Tommy is to finish chemotherapy intervention today and enter survivorship treatment. At this time Tommy remains to have lingering functional deficits including fatigue as well as neuropathy resulting in difficulty grasping items, and performing ADL's. Pt also has mild deficits in hip strength. However, pt maintains pain free status with low back and cervical pain. Further PT is indicated through survivorship to return pt to prior level of functioning as side-effects of the last chemotherapy intervention diminish. Posture: Unremarkable Sensation: Pt reports moderate neuropathy in fingers and toes ROM: WFL Strength: LE MMT: All 5/5 excluding L hip flex at 4+/5. Special Tests: FACT-G Score: PWB 23/28 (Initial ), SWB / (Initial ), EWB 23/24 (Initial ), FWB / (Initial ), Total: 96/108 (Initial 108/108) If you have any questions or concerns, please feel free to contact me at . Thank you, Estefany Hill, PT, DPT, CLT MTDD
[~2017-03-19 10:00] MED LIST changes: -ALTEPLASE RECOMB 2 MG VIAL IVP PRN; -FLUOROURACIL 50 MG/ML SDV IV ONE; -FLUOROURACIL 50 MG/ML SDV IVP ONE; -FLUOROURACIL IV ONE; -HEPARIN FLSH (PORT) 500 UN/5ML IVP PRN; -LEUCOVORIN CAL IV ONE; -LEUCOVORIN CALCIUM IV ONE; -LEUCOVORIN IV ONE; -NS 0.9% IV ONE; -NS(*) 0.9% 100 ML BAG 100 ML IVPB PRN; -OXALIPLATIN 100 MG/20 ML VIAL 180 MG in D5W(*) 250 ML BAG 250 ML IVPB ONE; -WATER STERILE 10 ML VIAL IVP PRN; -[UNRECOGNIZED DRUG - OTHER] IV ONE; -[UNRECOGNIZED DRUG - OTHER] IV ONE
--- NOTE | 2017-03-20 15:05 | PT PLAN OF CARE ---
Physician: QUENTIN Wong Patient is being seen: 2x/MO Therapist: Estefany Hill, PT, DPT, CLT Medical Diagnosis: Colon Cancer Treatment Diagnosis: Colon Cancer Date of Onset: 09/20/16 Date of Initial Evaluation: 09/20/16 Date patient was last seen: 03/19/17 Number of treatments: 7 Number of cancellations/No shows: 0 INTERVENTIONS: Manual Therapy/STM/MET Strengthening/condition Ice/Heat Range of Motion Spinal Stabilization Ultrasound Stretching Iontophoresis Neuromuscular Re-ed Closed Chain Program Electrical Stim Posture/Body mechanics Gait Trg/Balance Trg Biofeedback Home Exercise Program Mech./Manual Traction Therapeutic Activities Pelvic Floor GOALS: In 3 months pt will maintain FACT-G score of greater than 105/108 indicating status of functional, social, physical and emotional well-being. MET In 6 months pt will maintain FACT-G score of greater than 105/108 indicating status of functional, social, physical and emotional well-being. In Progress In 6 months pt will maintain functional strength of > 4+/5 in all major muscle groups indicating maintenance of functional strength for performance of ADL's. MET PATIENT'S GOAL: Maintain function throughout course of oncology treatment into survivorship. Status of Patient's Goals: 2/3 MET Patient Compliance: Good Prognosis: Good Reasons for discharge from therapy: Tommy is to discharge from physical therapy at this time secondary to pt finishing with oncology intervention. Though pt has met 2/3 functional goals, pt has lingering deficits including B LE neuropathy with associated decreased balance and stability, and generalized deconditioning. Pt has been started on a HEP to address these deficits and will continue physical therapy intervention with an outpatient clinic in [place], [place] where he is from to decrease unnecessary travel with poor winter conditions. Pt' s oncology providers were notified of the need for referral and care has been coordinated. Posture: Unremarkable Sensation: Pt reports moderate neuropathy in fingers and toes, sensation absent to light touch on the pad of the R foot, on the R first digit, and on the L digits 4&5. Sensation is diminished across the pad and toes B. Balance: 4 stage balance test: on flat surface max at SLS L 30 sec, R 28 sec. On foam max with patient unable to achieve 30 sec B, with increased trunk sway. ROM: WFL Strength: LE MMT: All 5/5 excluding L hip flex at 4+/5. Special Tests: FACT-G Score: PWB (Initial ), SWB (Initial ), EWB (Initial ), FWB (Initial ), Total: 96/108 (Initial 108/108) If you have any questions or concerns, please feel free to contact me at . Thank you, Estefany Hill, PT, DPT, CLT MTDD
== END 2017-03-19 18:00 | disposition home or self-care (01) ==
LOC: PT 10:00
PROVIDERS: ATTEND Nurse Practitioner Family
DX: C18.0 Malignant neoplasm of cecum (principal); M54.2 Cervicalgia; M54.5 Low back pain; M19.90 Unspecified osteoarthritis, unspecified site; Z90.49 Acquired absence of other specified parts of digestive tract

== ENCOUNTER 2017-06-11 08:00 | Outpatient (RCR) | payer MEDICARE ==
[~2017-06-11 08:00] MED LIST changes: +DEXTROSE 5%(*) 100 ML BAG 100 ML IVPB PRN; +LIDOCAINE/SOD BICARB 8.4% SYR ID PRN; +NS(*) 0.9% 100 ML BAG 100 ML IVPB PRN
[2017-06-11 08:59] VITALS: BP 148/74
[2017-06-11 09:12] LABS: PLATELET COUNT, AUTOMATED 227 K/uL (150-450)
[2017-06-11] MEDS ORDERED: IOPAMIDOL 76% 75 ML INFUS BTL 75 ML ONE (09:39)
--- NOTE | 2017-06-11 11:02 | RADIOLOGY IMAGING REPORT ---
FACILITY: [facility] PATIENT NAME: Tommy Starr : 1950 MR: [id number] V: [id number] EXAM DATE: ORDERING PHYSICIAN: JEN ALDRICH TECHNOLOGIST: Location: [facility] - [place], [place] Patient: Tommy Starr : 1950 Visit/Account:[id number] Date of Sevice: 06/11/2017 CHEST/AB/PELV W/CONTRAST HISTORY: Colon cancer ADDITIONAL HISTORY: None. TECHNIQUE: Following administration of IV contrast axial images acquired through the chest abdomen a nd pelvis during the portal venous phase. Coronal and sagittal reformatting was also performed. Dose Lowering Technique One of the following dose optimization techniques was utilized in the performance of this exam: Autom ated exposure control; adjustment of the mA and/or kV according to the patient's size; or use of an i terative reconstruction technique. Specific details can be referenced in the facility's radiology C T exam operational policy. CONTRAST: 75 mL Isovue-370 COMPARISON: None. FINDINGS: CHEST: Lungs/Pleura: Negative. Mediastinum/lymph nodes: No pathologically enlarged hilar mediastinal lymph nodes Heart/vessels: At least moderate coronary artery calcifications Bones/soft tissues: Gentle dextroconvex scoliosis and Mild to moderate spondylotic changes in the th oracic spine.. Mild compression fractures of T6 and T7. ABDOMEN AND PELVIS: Hepatobiliary: Gallbladder appears contracted which may be related to a recent meal Spleen: Negative. Pancreas: Negative. Adrenals: Negative. Kidneys ureters and bladder : There is a posterior wide necked bladder diverticulum Genitalia: Prostate gland is mildly enlarged and slightly heterogeneous GI: There are postsurgical changes of the right-sided the colon. Stomach is moderately distended w ith particulate material which could be related to a recent meal Vessels/spaces/nodes: The splenic vein and several branches of the SMV are incompletely opacified wi th contrast. This could be related to flow phenomena although partial thrombus not excluded. The ma in portal vein and intrahepatic portal branches appear well opacified Bones/soft tissues: Small sclerotic density in the left iliac bone, both femoral heads, superior pub ic ramus on the right ribs likely represent bone islands although if of concern short-term interval f ollow-up or bone scan recommended Additional findings: None pertinent. IMPRESSION: At least moderate coronary artery calcifications Mild compression fractures of T6 and T7 Gallbladder appears contracted which could be related to a recent meal as the stomach is moderately d istended with particulate material Postsurgical changes right side of the colon Prostate gland is mildly enlarged and slightly heterogeneous Wide necked posterior bladder diverticulum The splenic vein and several branches of the SMV are incompletely opacified with contrast. This coul d simply be related to a flow phenomena although partial thrombus is not excluded. The main portal v ein and intrahepatic portal branches appear well opacified with contrast Several sclerotic density seen in the pelvis which could represent bone islands. If of concern short -term interval follow-up or bone scan recommended A message was left for JEN ELINOR to callback concerning these results at 06/11/2017 10:56 AM. Report Dictated By: Luz Maria Sharma MD at 06/11/2017 10:37 AM Report E-Signed By: Luz Maria Sharma MD at 06/11/2017 10:57 AM WSN:AMICIVN
--- NOTE | 2017-06-16 15:09 | ONCOLOGY FOLLOW UP NOTE ---
EVENT DATE: June 11, 2017 CHIEF COMPLAINT/REASON FOR VISIT Mr. Starr is a pleasant 67-year-old gentleman with high risk stage II colon cancer, here for followup after completion of chemotherapy. HISTORY OF PRESENT ILLNESS Mr. Starr returns. He tolerated therapy overall quite well, although he does have some neuropathy. We discussed how this we hope will improve with time. I do not expect it to improve 100%. His imaging of the chest, abdomen and pelvis by CT looks excellent. I see no evidence of disease. I am very hopeful that he is cured. His CEA is still pending at this time. Mr. Starr feels that he is recovering. His biggest complaint remains the neuropathy. He does not have significant motor neuropathy that is impairing with his quality of life thankfully. It is not excessively painful, so we will not utilize Gabapentin at this time. No issues with infection. No fevers, chills. No abdominal pain. PAST MEDICAL HISTORY 1. Pericarditis in 1975. 2. Stage II colon cancer status post hemicolectomy on the right with high risk features including invasion in the pericolonic tissue with a high index of budding. Treatment with adjuvant FOLFOX for six months due to the high risk stage II status. FAMILY HISTORY Mother and grandfather with lung cancer. SOCIAL HISTORY Patient is with four children. Has presented with his . Approximately two alcoholic beverages (whiskey) per week. Never smoker. Patient is retired. REVIEW OF SYSTEMS CONSTITUTIONAL: No fevers, chills, weight change. HEENT: No headache or vision changes. CARDIOVASCULAR: No chest pain, dyspnea on exertion or edema. RESPIRATORY: No shortness of breath, wheeze, cough. GASTROINTESTINAL: No nausea or vomiting. GENITOURINARY: No dysuria or hematuria. NEUROLOGIC: Positive numbness. MUSCULOSKELETAL: No weakness or joint pain. PSYCHIATRIC: No anxiety or depression. SKIN: No concerning rashes or bruising. HEMATOLOGIC/LYMPHATIC: No concerning bleeding, bruising or adenopathy. The remainder of the 14-point review of systems is otherwise negative. PHYSICAL EXAMINATION VITAL SIGNS: Blood pressure 148/74, pulse 60, respiratory rate 12, temperature 98 Fahrenheit, oxygen saturation 95% on room air. Weight 92.4 kg. Pain 0/10, fatigue 0/10. GENERAL: In stable condition, resting comfortably in the chair. HEENT: Normocephalic, atraumatic. LYMPHATIC: No appreciable cervical, supraclavicular or axillary adenopathy. EXTREMITIES: No clubbing, cyanosis or edema. NEUROLOGIC: The patient describes numbness. We did discuss ways to improve his muscle strength as he has lost stamina. PSYCHIATRIC: Normal mood and affect. Remainder of physical exam otherwise unremarkable. IMPRESSION AND PLAN Mr. Starr is a pleasant 67-year-old gentleman with the followin. High risk stage II colon cancer. He has completed his chemotherapy. His imaging studies at the conclusion of chemotherapy look excellent. I believe he is in a complete remission and hopefully cured. I believe his cure rate is higher than 70%. Would like to see him with labs every three months and get scans every six months for the first one to two years. I answered all of their many questions today. Billing: Return visit level 4. Total time 30 minutes, counseling time 20. MTDD
== END 2017-06-15 16:23 | disposition home or self-care (01) ==
LOC: SPU 08:00
PROVIDERS: ATTEND Internal Medicine
DX: C18.9 Malignant neoplasm of colon, unspecified (principal); I25.10 Atherosclerotic heart disease of native coronary artery without angina pectoris; N40.0 Benign prostatic hyperplasia without lower urinary tract symptoms
CPT/HCPCS: 36415; 71260; 74177; 82378; 85025; G0463; Q9967; 82040; 82247; 82310; 82374; 82435; 82565; 82947; 84075; 84132; 84155; 84295; 84450; 84460; 84520; 99212

== ENCOUNTER 2017-09-05 01:11 | Day surgery (SDC) | payer MEDICARE ==
[~2017-09-05] VITALS: Ht 177.8 cm; Wt 86.2 kg
[~2017-09-05 01:11] MED LIST changes: +ASPI-757 PO; -DEXTROSE 5%(*) 100 ML BAG 100 ML IVPB PRN; -LIDOCAINE/SOD BICARB 8.4% SYR ID PRN; -NS(*) 0.9% 100 ML BAG 100 ML IVPB PRN
[2017-09-05] MEDS ORDERED: PROPOFOL EMUL(*) 10MG/ML 20 ML 20 ML ONE (11:17)
[2017-09-05] MEDS ORDERED: NORMOSOL R SOLN(*) 1000 ML BAG 1,000 ML IV PRN (12:30)
[2017-09-05] MEDS ORDERED: LIDOCAINE/SOD BICARB 8.4% SYR ID ONE (12:30)
[2017-09-05 13:06] VITALS: BP 121/87
[2017-09-05 13:47] VITALS: BP 92/62
[2017-09-05 14:10] VITALS: BP 101/58
[2017-09-05 14:23] VITALS: BP 103/61
[2017-09-05 14:25] VITALS: BP 115/70
== END 2017-09-05 14:30 | disposition home or self-care (01) ==
LOC: OR 01:11
PROVIDERS: ATTEND Surgery
DX: Z12.11 Encounter for screening for malignant neoplasm of colon (principal); Z85.038 Personal history of other malignant neoplasm of large intestine
CPT/HCPCS: 00812; 82248; G0121; J2704

== ENCOUNTER 2017-09-17 15:15 | Outpatient (RCR) | payer MEDICARE ==
[2017-09-05 11:51] VITALS: BP 130/78
[2017-09-05 11:55] LABS: PLATELET COUNT, AUTOMATED 220 K/uL (150-450)
--- NOTE | 2017-09-05 13:51 | Short(Outpt) Discharge Summary ---
Discharge Summary Reason for Hosp/Final Diag: (1) Stage II carcinoma of colon Status: Chronic Hospital Course & Plan: Colonoscopy completed without any problems. Departure Discharge to: Home, Self Care Discharge Instructions Home Meds Reported Medications Aspirin (ASPIRIN) 325 Mg Tablet, 325 MG PO Q4-6H Y for PAIN, TAB 07/10/17 Diet: Regular Activity: As Tolerated Special Instructions: Your colonoscopy was completed without any problems and your prep was excellent (Good Job!!). I didn't find any polyps, cancers, or other abnormalities and the surgical connection from your small intestine to your colon looks great. I recommend another colonoscopy in 6 months for surveillance. If normal then you should plan on colonoscopies a year after your next one, then at 3 years, then every 5 years. My office will call you in 6 months to discuss scheduling your next colonoscopy. JENNYFER BAKER MD Sep 05, 2017 13:51
[2017-09-17 15:35] VITALS: BP 110/63
--- NOTE | 2017-09-19 14:12 | ONCOLOGY FOLLOW UP NOTE ---
EVENT DATE: September 17, 2017 CHIEF COMPLAINT/REASON FOR VISIT Mr. Starr is a very pleasant 67-year-old gentleman with high-risk Stage II colon cancer here for followup after completion of adjuvant chemotherapy. HISTORY OF PRESENT ILLNESS Mr. Starr returns with his . He tolerated therapy overall quite well, although he does have some neuropathy, sensory only in the hands and feet. We discussed consideration of traveling to [place] for neuropathy therapy but he is not interested. The likelihood of success of that therapy is low but it is worth trying in my opinion. However, it is quite inconvenient. I do not expect it to improve 100%. He thinks he may be improving in the hands. His imaging of the chest, abdomen and pelvis by CT looks excellent back in May. Hopefully, he is cured. The CEA is back to normal but was only minimally elevated prior to treatment. Thus, it is unclear whether it is a good marker or not. He feels that he is recovering and nearing back to his baseline other than the neuropathy. No other issues. PAST MEDICAL HISTORY 1. Pericarditis in 1975. 2. Stage II colon cancer status post hemicolectomy on the right with high risk features including invasion in the pericolonic tissue with a high index of budding. Treatment with adjuvant FOLFOX for six months due to the high risk stage II status. FAMILY HISTORY Mother and grandfather with lung cancer. SOCIAL HISTORY Patient is with four children. Has presented with his . Approximately two alcoholic beverages (whiskey) per week. Never smoker. Patient is retired. REVIEW OF SYSTEMS CONSTITUTIONAL: No fevers, chills, weight change. HEENT: No headache or vision changes. CARDIOVASCULAR: No chest pain, dyspnea on exertion or edema. RESPIRATORY: No shortness of breath, wheeze, cough. GASTROINTESTINAL: No nausea or vomiting. GENITOURINARY: No dysuria or hematuria. NEUROLOGIC: Positive numbness. MUSCULOSKELETAL: No weakness or joint pain. PSYCHIATRIC: No anxiety or depression. SKIN: No concerning rashes or bruising. HEMATOLOGIC/LYMPHATIC: No concerning bleeding, bruising or adenopathy. The remainder of the 14-point review of systems is otherwise negative. PHYSICAL EXAMINATION VITAL SIGNS: Blood pressure 110/63, pulse 64, respiratory rate 16, temperature 97.7 Fahrenheit, oxygen saturation 93% on room air. Weight 90.9 kg. Pain 0/10 , fatigue 0/10. GENERAL: In stable condition, resting comfortably in the chair. HEENT: Normocephalic, atraumatic. LYMPHATIC: No appreciable cervical, supraclavicular or axillary adenopathy. CARDIOVASCULAR: Regular rate and rhythm. No murmur, rub or gallop. LUNGS: Clear to auscultation bilaterally. No wheezes, crackles or rales. ABDOMEN: Soft, nontender, nondistended. NEUROLOGIC: The patient describes numbness in the hands and feet, more in the feet than the hands. PSYCHIATRIC: Normal mood and affect. Remainder of physical exam otherwise unremarkable. IMPRESSION AND PLAN Mr. Starr is a very pleasant 67-year-old gentleman with the following: High risk stage II colon cancer. He has completed his chemotherapy. I believe he is complete remission and hopefully cured. His cure rate would be higher than 75%. I would like to see him every three months with labs and scans every six months for the first two years and then labs every six months after that. I answered all of his questions today. Billing: Return visit level 3. Total time 20 minutes, counseling time 15. MTDD
== END 2017-09-21 09:55 | disposition home or self-care (01) ==
LOC: ONC 15:15
PROVIDERS: ATTEND Internal Medicine
DX: C18.9 Malignant neoplasm of colon, unspecified (principal); G62.9 Polyneuropathy, unspecified
CPT/HCPCS: 36415; 82040; 82247; 82310; 82374; 82378; 82435; 82565; 82947; 84075; 84132; 84155; 84295; 84450; 84460; 84520; 85025; 99212

== ENCOUNTER 2017-12-17 06:56 | Outpatient (RCR) | payer MEDICARE ==
[2017-12-17 09:13] LABS: PLATELET COUNT, AUTOMATED 190 K/uL (150-450)
[2017-12-17] MEDS ORDERED: IOPAMIDOL 76% 75 ML INFUS BTL 75 ML ONE (09:21)
[2017-12-17 13:28] VITALS: BP 118/71
[2017-12-17] MEDS ORDERED: INFLUENZA VIRUS VAC 0.5ML SYR IM ONLY ONE (14:05)
--- NOTE | 2017-12-17 14:13 | RADIOLOGY IMAGING REPORT ---
FACILITY: [facility] - [place] PATIENT NAME: Tommy Starr : 1950 MR: [id number] V: [id number] EXAM DATE: ORDERING PHYSICIAN: JEN ALDRICH TECHNOLOGIST: Location: [facility] [place] Patient: Tommy Starr : 1950 Visit/Account:[id number] Date of Sevice: 12/17/2017 CHEST/AB/PELV W/CONTRAST HISTORY: Colon cancer ADDITIONAL HISTORY: None. TECHNIQUE: Following administration of IV contrast axial images acquired through the chest abdomen a nd pelvis during the portal venous phase. Coronal and sagittal reformatting was also performed.Dose Lowering Technique One of the following dose optimization techniques was utilized in the performance of this exam: Autom ated exposure control; adjustment of the mA and/or kV according to the patient's size; or use of an i terative reconstruction technique. Specific details can be referenced in the facility's radiology C T exam operational policy. CONTRAST: 75 mL Isovue-370 COMPARISON: June 11, 2017 FINDINGS: CHEST: Lungs/Pleura: Negative. Mediastinum/lymph nodes: Negative. Heart/vessels: Extensive coronary artery calcifications Bones/soft tissues: Spondylotic changes of the cervical and thoracic spine. Mild compression fractu res of T6 and T7 remain stable ABDOMEN AND PELVIS: Hepatobiliary: Negative. Spleen: Negative. Pancreas: Negative. Adrenals: Negative. Kidneys ureters and bladder : Kidneys appear grossly unremarkable. There is a posterior bladder dive rticulum again noted Genitalia: Prostate gland is enlarged and slightly heterogeneous GI: Again noted are postsurgical changes of the right side of the colon. Vessels/spaces/nodes: The SMV splenic vein and portal veins are well opacified with contrast. Bones/soft tissues: Small sclerotic foci previously described in the left iliac bone, both femoral h monica, superior pubic ramus and right ribs appear stable likely representing bone islands Additional findings: None pertinent. IMPRESSION: There are postsurgical changes of the right side of the colon again seen with no evidence of metastat ic disease at this time The SMV, splenic vein and portal veins now appear well opacified with contrast Additional chronic findings as detailed above Report Dictated By: Luz Maria Sharma MD at 12/17/2017 1:55 PM Report E-Signed By: Luz Maria Sharma MD at 12/17/2017 2:10 PM DAGOBERTON:OZZY
--- NOTE | 2017-12-18 14:03 | [facility] ONCOLOGY NOTE ---
DATE OF VISIT: December 17, 2017 CHIEF COMPLAINT/REASON FOR VISIT Mr. Starr is a pleasant 67-year-old gentleman with high risk stage II colon cancer status post adjuvant chemotherapy with FOLFOX. Here for followup. HISTORY OF PRESENT ILLNESS Mr. Starr returns with his . He tolerated therapy overall quite well although he does continue to have some neuropathy sensory only in the hands and feet. We had previously discussed traveling to [place] for neuropathy therapy at a physical therapist that specializes in this, but he is not interested in the travel. The likelihood of success with that therapy is unknown. I do not expect his neuropathy to improve 100%, but he is having some hypersensitivity and odd sensations, which I do believe may be improvement in the hands and feet. He does believe it is getting better in the hands at least. His imaging in May 2017 was well and were repeated at this month. I do not have the formal radiologist review yet. However, I reviewed the imaging thoroughly, and I do not see any evidence of metastatic disease or significant adenopathy. He does have constipation and is due for a colonoscopy around the turn of the year. He understands that the CT scan does not replace the colonoscopy. His CEA has been back to normal and was only minimally elevated prior to treatment. It is unclear whether or not it is a good marker. Otherwise, he feels quite well. No fevers, chills, weight change. He is very happy with how he is healing other than the neuropathy. PAST MEDICAL HISTORY 1. Pericarditis in 1975. 2. Stage II colon cancer status post hemicolectomy on the right with high risk features including invasion in the pericolonic tissue with a high index of budding. Treatment with adjuvant FOLFOX for six months due to the high risk stage II status. FAMILY HISTORY Mother and grandfather with lung cancer. SOCIAL HISTORY Patient is with four children. Has presented with his . Approximately two alcoholic beverages (whiskey) per week. Never smoker. Patient is retired. REVIEW OF SYSTEMS CONSTITUTIONAL: No fevers, chills, weight change. HEENT: No headache or vision changes. CARDIOVASCULAR: No chest pain, dyspnea on exertion or edema. RESPIRATORY: No shortness of breath, wheeze, cough. GASTROINTESTINAL: No nausea or vomiting. GENITOURINARY: No dysuria or hematuria. NEUROLOGIC: Positive numbness. MUSCULOSKELETAL: No weakness or joint pain. PSYCHIATRIC: No anxiety or depression. SKIN: No concerning rashes or bruising. HEMATOLOGIC/LYMPHATIC: No concerning bleeding, bruising or adenopathy. The remainder of the 14-point review of systems is otherwise negative. PHYSICAL EXAMINATION VITAL SIGNS: Blood pressure 118/71, pulse 61, respiratory rate 16, temperature 97.8 Fahrenheit, oxygen saturation 93% on room air. Weight 94.2 kg. Pain 0/10, fatigue 0/10. GENERAL: Stable condition, resting comfortably in the chair. HEENT: Normocephalic, atraumatic. LYMPHATIC: No appreciable cervical, supraclavicular, or axillary adenopathy. ABDOMEN: Soft, nontender, nondistended. EXTREMITIES: No clubbing, cyanosis, or edema. SKIN: No concerning findings. NEUROLOGIC: Normal. He does note some sensory deficits, but I do not find any motor deficits on exam. PSYCHIATRIC: Normal mood and affect. Remainder of the physical exam otherwise unremarkable. IMPRESSION/REPORT/PLAN Mr. Starr is a very pleasant 67-year-old gentleman with the followin. High risk stage II colon cancer, who has completed his chemotherapy due to the high risk nature. I believe he is in complete remission. Reviewed his imaging. Formal reports and the CEA are still pending though. His cure rate should be higher than 75%. I would like to see him in six months and get scans in one year. I answered all of his questions today. BILLING Return visit level 4. Total time 30 minutes, counseling time 20. MTDD
== END 2018-01-23 11:09 | disposition home or self-care (01) ==
LOC: ONC 06:56
PROVIDERS: ATTEND Internal Medicine
DX: C18.9 Malignant neoplasm of colon, unspecified (principal); G62.9 Polyneuropathy, unspecified; Z92.21 Personal history of antineoplastic chemotherapy; K59.00 Constipation, unspecified; Z23 Encounter for immunization
CPT/HCPCS: 36415; 71260; 74177; 82378; 85025; 90471; G0463; Q2037; Q9967; 82040; 82247; 82310; 82374; 82435; 82565; 82947; 84075; 84132; 84155; 84295; 84450; 84460; 84520; 90674; 99212

== ENCOUNTER 2018-05-15 07:28 | Day surgery (SDC) | payer MEDICARE ==
[~2018-05-15] VITALS: Ht 182.9 cm; Wt 85.7 kg
[~2018-05-15 07:28] MED LIST changes: +ATR80PT PO
[2018-05-15] MEDS ORDERED: PROPOFOL EMUL(*) 10MG/ML 20 ML 40 ML ONE (07:36)
[2018-05-15 08:25] VITALS: BP 115/78
[2018-05-15] MEDS ORDERED: LIDOCAINE/SOD BICARB 8.4% SYR ID ONE (08:55)
[2018-05-15] MEDS ORDERED: NORMOSOL R SOLN(*) 1000 ML BAG 1,000 ML IV PRN (08:55)
[2018-05-15] MEDS ORDERED: GLYCOPYRROLATE 0.2MG/ML 1 ML INJ ONE (09:25)
[2018-05-15 09:40] VITALS: BP 88/61
[2018-05-15 10:00] VITALS: BP 103/71
[2018-05-15 10:34] VITALS: BP 119/76
--- NOTE | 2018-05-15 10:35 | Short(Outpt) Discharge Summary ---
Discharge Summary Reason for Hosp/Final Diag: (1) Stage II carcinoma of colon Status: Chronic Hospital Course & Plan: Colonoscopy completed without problems; normal, colonoscopy in 1 year for surveillance. Departure Discharge to: Home, Self Care Discharge Instructions Home Meds Reported Medications Atorvastatin (LIPITOR) 80 Mg Tab, 20 MG PO QDAY, TAB 03/22/18 Aspirin (ASPIRIN) 325 Mg Tablet, 325 MG PO Q4-6H PRN for PAIN, TAB 07/10/17 Diet: Regular Activity: As Tolerated Special Instructions: Your colonoscopy was completed without any problems and your prep was excellent (Good Job!!). I didn't find any cancer or polyps and the surgical connection between your small and large intestine is well healed and looks normal. I recommend that you have another colonoscopy in 1 year. We'll put a reminder in my clinic calendar to call you with a reminder in 1 year for your next colonoscopy. JENNYFER BAKER MD May 15, 2018 09:45
[2018-05-15 10:36] VITALS: BP 114/81
--- NOTE | 2018-05-15 11:02 | NUR ---
0940- PT. RECEIVED FROM OR VIA STRETCHER WITH THE SIDERAILS UP. SBAR RECEIVED FROM BENITO OLSON AND DR. CORADO. SEE ADMISSION ASSESSMENT. 0952- PT. STILL SLEEPING AND NOT RESPONDING TO COMMANDS. I TURNED PT. O2 DOWN TO 2LPM. 1002- PT. AWAKE AND RESPONDING TO COMMANDS. 1010- BROUGHT TO BEDSIDE. 1013- PT. RETURNED TO ROOM AIR. 1030- PT. STATES THAT HE IS READY TO GP HOME SO ORTHOSTATICS PREFORMED. PT. DENIES AND LIGHTHEADEDNESS OR DIZZINESS. 1035- PT. GETTING DRESSED. 1040- DISCHARGE INSTRUCTIONS GONE OVER WITH PT. AND . ALL QUESTIONS ANSWERED AND THEY STATED UNDERSTANDING. 1045- IV TAKEN OUT WITH CATH INTACT AND PRESSURE DRESSING APPLIED. 1050- PT. ACCOMPANIED OUT AMBULATORY WITH AND RICKI OLSON. SEE DISCHARGE ASSESSMENT.
== END 2018-05-15 10:50 | disposition home or self-care (01) ==
LOC: OR 07:28
PROVIDERS: ATTEND Surgery
DX: Z12.11 Encounter for screening for malignant neoplasm of colon (principal); Z85.038 Personal history of other malignant neoplasm of large intestine
CPT/HCPCS: 00812; G0121; J2704; J3490

== ENCOUNTER 2018-05-27 09:56 | Outpatient (RCR) | payer MEDICARE ==
[2018-05-27 10:26] VITALS: BP 135/79
--- NOTE | 2018-05-27 11:43 | [facility] ONCOLOGY NOTE ---
EVENT DATE: May 27, 2018 CHIEF COMPLAINT/REASON FOR VISIT Mr. Starr is a pleasant 68-year old gentleman with a history of high-risk stage II colon cancer, status post adjuvant chemotherapy with FOLFOX here for followup. HISTORY OF PRESENT ILLNESS Mr. Starr returns with his . He tolerated therapy overall well but does continue to have some sensory neuropathy in the hands and feet. This is tolerable and nonpainful. We had previously discussed traveling to [place] for neuropathy therapy with a physical therapy group but he is not interested in that travel. The likelihood of success with that therapy is unknown. He does feel it is slowly improving and he has a "tic" in his left foot when he has his shoe off. I do not believe this is Parkinson's as it occurred after he received the oxaliplatin. He does think his hands are getting a little bit better. It is not interfering with his activities of daily living or his work. His imaging in the fall of 2017 looked well. No evidence of metastatic disease or adenopathy. We are getting scans once a year for now. His CEA is back to normal, although it was only minimally elevated prior to treatment. No fever, chills or weight change. No concerning lumps or bumps. His labs look excellent. His CEA is now normal. He had a colonoscopy earlier this year based on our recommendations and this was unremarkable. PAST MEDICAL HISTORY 1. Pericarditis in 1975. 2. Stage II colon cancer status post hemicolectomy on the right with high risk features including invasion in the pericolonic tissue with a high index of budding. Treatment with adjuvant FOLFOX for six months due to the high risk stage II status. FAMILY HISTORY Mother and grandfather with lung cancer. SOCIAL HISTORY Patient is with four children. Has presented with his . Approximately two alcoholic beverages (whiskey) per week. Never smoker. Patient is retired. REVIEW OF SYSTEMS CONSTITUTIONAL: No fevers, chills, weight change. HEENT: No headache or vision changes. CARDIOVASCULAR: No chest pain, dyspnea on exertion or edema. RESPIRATORY: No shortness of breath, wheeze, cough. GASTROINTESTINAL: No nausea or vomiting. GENITOURINARY: No dysuria or hematuria. NEUROLOGIC: Positive numbness. MUSCULOSKELETAL: No weakness or joint pain. PSYCHIATRIC: No anxiety or depression. SKIN: No concerning rashes or bruising. HEMATOLOGIC/LYMPHATIC: No concerning bleeding, bruising or adenopathy. The remainder of the 14-point review of systems is otherwise negative. PHYSICAL EXAMINATION VITAL SIGNS: Blood pressure 135/79, pulse 57, respiratory rate 16, temperature 98.5 Fahrenheit, oxygen saturation 95% on room air. Weight 93.4 kg. Pain 0/10, fatigue 0/10. Low fall risk. GENERAL: Stable condition, resting comfortably in the chair. HEENT: Normocephalic, atraumatic. LYMPHATIC: No appreciable cervical, supraclavicular or axillary adenopathy. CARDIOVASCULAR: Regular rate and rhythm. Normal S1 and S2. LUNGS; Clear to auscultation bilaterally. ABDOMEN: Soft, nontender, nondistended. No hepatomegaly, splenomegaly or masses. EXTREMITIES: No clubbing, cyanosis or edema. PSYCHIATRIC: Normal mood and affect. NEUROLOGIC: Normal. No motor deficits but he does have the sensory deficits outlined above. Remainder of the physical exam otherwise unremarkable. IMPRESSION/REPORT/PLAN Mr. Starr is a very pleasant 68-year-old gentleman with the followin. High risk stage II colon cancer, who completed six cycles of chemotherapy due to the high risk nature. He is in complete remission. Imaging will be annually and we are getting it in the fall. The CEA is normal. His cure rate I expect to be excellent. I answered all of his questions today. 2. 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 Minimal improvement. No intervention is recommended at this time. BILLING Return visit level 4. Total time 30 minutes, counseling time 20. MTDD
== END 2018-06-19 09:27 | disposition home or self-care (01) ==
LOC: ONC 09:56
PROVIDERS: ATTEND Internal Medicine
DX: Z85.038 Personal history of other malignant neoplasm of large intestine (principal); Z92.21 Personal history of antineoplastic chemotherapy; G62.0 Drug-induced polyneuropathy
CPT/HCPCS: 99212